=== PATIENT | female | born 1955 | race Caucasian/White ===

== ENCOUNTER 2016-03-08 11:33 | Inpatient (IN) | payer BC ==
[~2016-03-08] VITALS: Ht 162.6 cm; Wt 64.8 kg
[~2016-03-08 11:33] MED LIST: ADVAIR 250/501 DISK IH; Actigall PO; Advair 500/50 Diskus IH; Astelin, Astepro 0.1 BOTH NARES; Augmentin PO; CO Q-10100 MG PO; DELTASONE20 M1 PO; DOXYCYCLINE HY100 MG PO; DUONEB 2.5-0.5 M3 ML AEROSOL; DUONEB 2.5-0.5 M3 ML IH; DuoNeb IH; FLEXERIL5 MG PO; FLONASE16 G1 BOTH NARES; FLORASTOR250 MG PO; HYDROCHLOROTHIA25 MG PO; KEFLEX500 MG PO; LATANOPROST2.5 ML BOTH EYES; LISINOPRIL10 MG PO; LISINOPRIL20 MG PO; LUMIGAN 0.50 DROP/2. BOTH EYES; MONTELUKAST SOD10 MG PO; OMEPRAZOLE40 M1 PO; PRAVACHOL80 MG PO; PRAVASTATIN SOD80 MG PO; PREDNISONE10 MG PO; PREDNISONE20 M1 PO; PRINIVIL20 MG PO; PROAIR HFA8.5 GM IH; PYRIDIUM200 MG PO; SINGULAIR10 MG PO; Singulair PO; TYLENOL REGULA325 MG PO; TYLENOL WITH C1 EACH PO; VITAMIN B12-FO1 EACH PO; VITAMIN D PO; VITAMIN D1000 INTUN PO; VITAMIN D31000 UNI2 PO; ZESTRIL,PRINIVI20 MG PO; Zestril,Prinivil PO; predniSONE PO
[2016-03-08 12:26] LABS: HEMATOCRIT 42.6 % (36.0-46.0); MCH 28.4 PG (29.0-34.0); MCHC 33.8 G/DL (30.0-36.0); PLATELET COUNT 297 K/uL (156-360); RBC DIS.WIDTH-CV 13.1 % (11.8-14.6); RBC DIS.WIDTH-SD 39.4 % (39-53); RED BLOOD COUNT 5.07 M/uL (3.80-5.20); WHITE BLOOD COUNT 18.2 K/uL (4.1-10.2)
[2016-03-08] MEDS ORDERED: LATANOPROST2.5 ML BOTH EYES (12:27)
[2016-03-08 12:36] LABS: CHLORIDE 107 mEq/L (99-109); POTASSIUM 3.9 mEq/L (3.7-5.4); SODIUM 141 mEq/L (136-147)
[2016-03-08 12:38] LABS: GLUCOSE 156 mg/dL (70-99)
[2016-03-08 12:39] LABS: ANION GAP 13 MEQ/L (2-14)
[2016-03-08 12:42] LABS: GFR ESTIMATE (CALCULATED) > 59 mL/min/
[2016-03-08 12:43] LABS: UREA NITROGEN (BUN) 15 mg/dL (9-23)
[2016-03-08 12:47] LABS: TROP-I INTERPRETATION NEGATIVE; TROPONIN-I < 0.01 ng/mL (0.0-0.30)
[2016-03-08] MEDS ORDERED: ADVAIR 500/501 DISK IH (16:01)
[2016-03-08] MEDS ORDERED: DELTASONE20 M1 PO ×2 (16:02)
[2016-03-08] MEDS ORDERED: AUGMENTIN875 MG PO (16:02)
[2016-03-08 18:22] VITALS: BP 142/70
[2016-03-08 23:48] VITALS: BP 106/62
[2016-03-09 04:32] VITALS: BP 108/62
[2016-03-09 06:54] LABS: HEMATOCRIT 40.4 % (36.0-46.0); MCH 28.4 PG (29.0-34.0); MCHC 32.7 G/DL (30.0-36.0); MCV 87.1 FL (83-99); MEAN PLAT.VOLUME 10.4 uM^3 (9.5-12.4); PLATELET COUNT 260 K/uL (156-360); RBC DIS.WIDTH-CV 13.4 % (11.8-14.6); RBC DIS.WIDTH-SD 42.3 % (39-53); RED BLOOD COUNT 4.64 M/uL (3.80-5.20); WHITE BLOOD COUNT 13.1 K/uL (4.1-10.2)
[2016-03-09 08:00] VITALS: BP 123/68
[2016-03-09 08:59] LABS: ANION GAP 12 MEQ/L (2-14); CHLORIDE 105 MEQ/L (99-109); GFR ESTIMATE (CALCULATED) > 59 mL/min/; GLUCOSE 182 mg/dL (70-99); POTASSIUM 4.5 MEQ/L (3.7-5.4); SAMPLE HEMOLYSIS CHECK 0; SAMPLE ICTERIC CHECK 0; SAMPLE LIPEMIA CHECK 0; SODIUM 141 MEQ/L (136-147); UREA NITROGEN (BUN) 15 mg/dL (9-23)
[2016-03-09 12:00] VITALS: BP 131/75
[2016-03-09 16:00] VITALS: BP 132/76
[2016-03-09 21:00] VITALS: BP 125/78
[2016-03-10] VITALS: BP 115/61
[2016-03-10 04:00] VITALS: BP 131/75; BP 142/78
[2016-03-10 06:54] LABS: HEMATOCRIT 41.2 % (36.0-46.0); MCH 28.5 PG (29.0-34.0); MCHC 32.8 G/DL (30.0-36.0); MCV 87.1 FL (83-99); MEAN PLAT.VOLUME 10.7 uM^3 (9.5-12.4); PLATELET COUNT 283 K/uL (156-360); RBC DIS.WIDTH-CV 13.2 % (11.8-14.6); RBC DIS.WIDTH-SD 42.3 % (39-53); RED BLOOD COUNT 4.73 M/uL (3.80-5.20); WHITE BLOOD COUNT 16.8 K/uL (4.1-10.2)
[2016-03-10 07:18] LABS: ANION GAP 14 MEQ/L (2-14); CHLORIDE 103 MEQ/L (99-109); GFR ESTIMATE (CALCULATED) > 59 mL/min/; GLUCOSE 220 mg/dL (70-99); POTASSIUM 4.1 MEQ/L (3.7-5.4); SAMPLE HEMOLYSIS CHECK 0; SAMPLE ICTERIC CHECK 0; SAMPLE LIPEMIA CHECK 0; SODIUM 139 MEQ/L (136-147); UREA NITROGEN (BUN) 19 mg/dL (9-23)
== END 2016-03-10 08:00 | disposition home or self-care (01) | DRG 203 ==
LOC: EME 11:33 → 4SOUTH 16:17 → EDOF 16:17 → 4SOUTH 18:12
PROVIDERS: Internal Medicine
DX: J45.901 Unspecified asthma with (acute) exacerbation (principal); R00.2 Palpitations; J01.91 Acute recurrent sinusitis, unspecified; I10 Essential (primary) hypertension
CPT/HCPCS: 71020; 80048; 84484; 85027; 93005; 94640; 94640 76; 99202; 99281; 99285; J0696; J2930; J7050

== ENCOUNTER 2017-08-24 09:18 | Emergency (ER) | payer OTHER, BC ==
[~2017-08-24] VITALS: Ht 152.4 cm; Wt 63.0 kg
[~2017-08-24 09:18] MED LIST changes: +ADVAIR 500/501 DISK IH; +AUGMENTIN875 MG PO
[2017-08-24] MEDS ORDERED: PREDNISONE20 MG PO (13:03)
[2017-08-24 14:34] VITALS: BP 141/87
== END 2017-08-24 14:35 | disposition home or self-care (01) ==
LOC: EME 09:18
DX: J45.901 Unspecified asthma with (acute) exacerbation (principal); T54.91XA Toxic effect of unspecified corrosive substance, accidental (unintentional), initial encounter; R42 Dizziness and giddiness; R07.89 Other chest pain; R10.9 Unspecified abdominal pain; Y99.0 Civilian activity done for income or pay; I10 Essential (primary) hypertension; E78.5 Hyperlipidemia, unspecified; Z90.49 Acquired absence of other specified parts of digestive tract; Z90.710 Acquired absence of both cervix and uterus; Z88.2 Allergy status to sulfonamides
CPT/HCPCS: 71045; 94640; 99281; 99285; J2930